=== PATIENT | male | born 1995 | race Caucasian/White ===

== ENCOUNTER 2018-11-14 18:42 | Emergency (ER) | payer SELFPAY ==
[~2018-11-14] VITALS: Ht 180.3 cm; Wt 69.0 kg
--- NOTE | 2018-11-14 18:46 | ED.ADGEN ---
Adult General Chief Complaint Chief Complaint "This tooth is killing.. I can't eat...It hard to focus at work...." HPI HPI Patient is a 23 year old male who presents with severe dental pain in tooth 32. Patient has an open cavity in tooth 32. No pointing abscess. No trismus. No adenopathy appreciated. Patient has no history of immunosuppression. No history of travel. No history of ill contacts. Patient does work at [employer]. Denies any medical problems. Not following with a physician or dentist currently. Patient last had a tetanus in high school. Review of Systems Review of Systems Constitutional: Denies fever or chills [] Eyes: Denies change in visual acuity, redness, or eye pain [] HENT: Denies nasal congestion or sore throat []complaints of dental pain Respiratory: Denies cough or shortness of breath [] Cardiovascular: No additional information not addressed in HPI [] GI: Denies abdominal pain, nausea, vomiting, bloody stools or diarrhea [] : Denies dysuria or hematuria [] Musculoskeletal: Denies back pain or joint pain [] Integument: Denies rash or skin lesions [] Neurologic: Denies headache, focal weakness or sensory changes [] Endocrine: Denies polyuria or polydipsia [] All other systems were reviewed and found to be within normal limits, except as documented in this note. Family History Family History Noncontributory Current Medications Current Medications Current Medications Medications (Trade) Dose Ordered Sig/Jayla Start Time Stop Time Status Last Admin Dose Admin Cephalexin HCl (Keflex) 500 mg 1X ONCE 11/14/18 19:30 11/14/18 19:31 DC 11/14/18 19:23 500 MG Hydrocodone Bitartrate/ Ibuprofen (Vicoprofen 7.5-200) 1 tab STK-MED ONCE 11/14/18 19:14 11/14/18 19:16 DC Allergies Allergies Allergies Coded Allergies Type Severity Reaction Last Updated Verified No Known Drug Allergies 11/14/18 No Physical Exam Physical Exam Constitutional: Well developed, well nourished, Moderately acute distress, non- toxic appearance. [] HENT: Normocephalic, atraumatic, bilateral external ears normal, oropharynx moist, no oral exudates, nose normal. Dental caries. 32 open cavity and tender to percussion. Eyes: PERRLA, EOMI, conjunctiva normal, no discharge. [] Neck: Normal range of motion, no tenderness, supple, no stridor. [] Cardiovascular:Heart rate regular rhythm, no murmur [] Lungs & Thorax: Bilateral breath sounds equal at apexes with scattered wheezes on auscultation [] Abdomen: Bowel sounds normal, soft, no tenderness, no masses, no pulsatile masses. [] Skin: Warm, dry, no erythema, no rash. [] Back: No tenderness, no CVA tenderness. [] Extremities: No tenderness, no cyanosis, no clubbing, ROM intact, no edema. [] Neurologic: Alert and oriented X 3, normal motor function, normal sensory function, no focal deficits noted. [] Psychologic: Affect anxious, judgement normal, mood normal. [] Current Patient Data Vital Signs Vital Signs Date Time Temp Pulse Resp B/P (MAP) Pulse Ox O2 Delivery O2 Flow Rate FiO2 11/14/18 19:25 76 18 97 11/14/18 18:42 97.6 Room Air EKG EKG [] Radiology/Procedures Radiology/Procedures [] Course & Med Decision Making Course & Med Decision Making Pertinent Labs and Imaging studies reviewed. (See chart for details). Must see a dentist. Otherwise patient meds will not fix this problem. Must have dental repair or extraction. Patient take Keflex 500 mg 3 times a day. Tylenol and ibuprofen for pain for marked pain may take Vicoprofen up 4 times a day. Must follow-up. Referred patient if he is unable to get a dentist in the area to tx him , consider follow-up at the dental school in [facility] or the oral surgery clinic at [facility]. Encourage pt. to stop smoking. [] Final Impression Final Impression 1. Dental pain-32 2. Tobacco and marijuana use 3. History of anxiety disorder 4. History of PTSD Dragon Disclaimer Dragon Disclaimer This electronic medical record was generated, in whole or in part, using a voice recognition dictation system. Dragon Disclaimer This chart was dictated in whole or in part using Voice Recognition software in a busy, high-work load, and often noisy Emergency Department environment. It may contain unintended and wholly unrecognized errors or omissions. Discharge Summary Brief Hospital Course Allergies Allergies Coded Allergies Type Severity Reaction Last Updated Verified No Known Drug Allergies 11/14/18 No Vital Signs Vital Signs Date Time Temp Pulse Resp B/P (MAP) Pulse Ox O2 Delivery O2 Flow Rate FiO2 11/14/18 19:25 76 18 97 11/14/18 18:42 97.6 Room Air Brief Hospital Course Mr. Dailey is a 23 old male who presented with dental pain tooth 32. Discharge Information Condition at Discharge: Improved, Stable Disposition/Orders: D/C to Home Dischare Medications Current Medications Hydrocodone Bitartrate/ Ibuprofen (Vicoprofen 7.5-200) 2 tab 1X ONCE PO Last administered on 11/14/18at 19:22; Admin Dose 2 TAB; Start 11/14/18 at 19:30; Stop 11/14/18 at 19:31; Status DC Cephalexin HCl (Keflex) 500 mg 1X ONCE PO Last administered on 11/14/18at 19:23 ; Admin Dose 500 MG; Start 11/14/18 at 19:30; Stop 11/14/18 at 19:31; Status DC Hydrocodone Bitartrate/ Ibuprofen (Vicoprofen 7.5-200) 1 tab STK-MED ONCE .ROUTE ; Start 11/14/18 at 19:14; Stop 11/14/18 at 19:16; Status DC Active Scripts Active Keflex (Cephalexin) 500 Mg Capsule 500 Mg PO TID Hydrocodone-Ibuprofen 7.5-200 (Hydrocodone/Ibuprofen) 1 Each Tablet 1 Tab PO PRN Q6HRS PRN JUAREZ CHU MD Nov 14, 2018 18:46
[2018-11-14] MEDS ORDERED: CEPH-264 PO (19:03)
[2018-11-14] MEDS ORDERED: HYDR-1179 PO (19:03)
[2018-11-14] MEDS ORDERED: HYDROcodon/IBUPROFEN 7.5/200MG 1 TAB TABLET ONE (19:14)
[2018-11-14 19:25] VITALS: BP 112/62
[2018-11-14] MEDS ORDERED: CEPHALEXIN 250 MG CAPSULE PO ONE (19:30)
[2018-11-14] MEDS ORDERED: HYDROcodon/IBUPROFEN 7.5/200MG 1 TAB TABLET PO ONE (19:30)
== END 2018-11-14 19:25 | disposition home or self-care (01) ==
LOC: ER 18:42
DX: K02.9 Dental caries, unspecified (principal); K08.89 Other specified disorders of teeth and supporting structures; Z72.0 Tobacco use; F12.90 Cannabis use, unspecified, uncomplicated; F41.9 Anxiety disorder, unspecified; F43.10 Post-traumatic stress disorder, unspecified
CPT/HCPCS: 99283

== ENCOUNTER 2019-08-18 22:50 | Emergency (ER) | payer SELFPAY ==
[~2019-08-18] VITALS: Ht 177.8 cm; Wt 65.8 kg
[~2019-08-18 22:50] MED LIST: CEPH-264 PO; HYDR-1179 PO
[2019-08-18 23:06] VITALS: BP 107/72
[2019-08-18] MEDS ORDERED: DICL50TA4 PO (23:11)
--- NOTE | 2019-08-18 23:11 | PHYS DOC ---
Past History Past Medical History: Anxiety, Depression Past Surgical History: No Surgical History Alcohol Use: None Drug Use: Marijuana Adult General Chief Complaint Chief Complaint: DENTAL PROBLEM HPI HPI Patient is a 24 year old male who presents to the emergency department for evaluation. He states 2 days ago his dog jumped into him when he came home, and head butted him, knocking out the lower portion of his left upper lateral incisor. He is having pain in that area. He also reports flare of pain that he has had from a dental abscess from about 10 months ago when he was seen at this facility. He denies any fevers or chills or any other complaints. Palpation of the affected area worsens his pain. He states he has drank a lot of soda during his childhood and 11 years, without good dental care and does have some generalized dental decay present. Review of Systems Review of Systems Constitutional: Denies fever or chills [] Eyes: Denies change in visual acuity, redness, or eye pain [] HENT: Denies nasal congestion or sore throat [] Respiratory: Denies cough or shortness of breath [] Integument: Denies rash or skin lesions [] Neurologic: Denies headache, focal weakness or sensory changes [] Allergies Allergies Allergies Coded Allergies Type Severity Reaction Last Updated Verified No Known Drug Allergies 11/14/18 No Physical Exam Physical Exam PHYSICAL EXAM: CONSTITUTIONAL: Well developed, well nourished HEAD: normocephalic, atraumatic EENT: PERRL, EOMI. Conjunctivae normal color, sclerae non-icteric; moist mucous membranes. There is mild diffuse dental decay. The lower half of the left upper lateral incisor is traumatically absent although the acuity is unknown. There is mild generalized dental decay. NECK: Supple, non-tender; no meningismus. LUNGS: Lungs CTA, breathing even and unlabored. Normal air movement. HEART: Regular rate and rhythm, no murmur CHEST: No deformity; non-tender SKIN: No rash; no diaphoresis NEURO: Alert; normal speech and cognition; EKG EKG [] Radiology/Procedures Radiology/Procedures [] Course & Med Decision Making Course & Med Decision Making I offered the patient a dental block, but he declined. I discussed importance of dental follow-up and he'll be given dental resources. Return precautions were discussed in detail. Dragon Disclaimer Dragon Disclaimer This electronic medical record was generated, in whole or in part, using a voice recognition dictation system. Departure Departure: Impression: Primary Impression: Pain, dental Disposition: HOME, SELF-CARE Condition: STABLE Referrals: PCPBETITO (PCP) Patient Instructions: Dental Fracture, Dental Pain Additional Instructions: Follow-up with the dentist of your choice as soon as possible, using the dental resources provided. Scripts Diclofenac Sodium (DICLOFENAC SODIUM) 50 Mg Tablet.dr 1 TAB PO BID for -, #20 TAB 0 Refills Prov: MAURICE PARRISH MD 08/18/19 MAURICE PARRISH MD Aug 18, 2019 23:11
== END 2019-08-18 23:15 | disposition home or self-care (01) ==
LOC: ER 22:50
DX: K02.9 Dental caries, unspecified (principal)
CPT/HCPCS: 99283